=== PATIENT | female | born 1950 | race Caucasian/White ===

== ENCOUNTER 2018-07-26 10:12 | Emergency (ER) | payer MEDICAID, MEDICARE ==
[2018-07-26 11:00] VITALS: BP 117/62
--- NOTE | 2018-07-26 11:28 | UC ---
Skin Complaint HPI - HPI Summary HPI Summary: Pt presents with "rash on right forearm" that began in March 2018. Pt reports that she was bitten by a "bug" and was told she had cellulitis and to apply triple antibiotic ointment daily. Pt has been apply triple antibiotic ointment daily since March 2018. Now c/o of enlarged erythematous area that is circular and excoriated. Pt c/o itching and has concern for lyme. - History of Current Complaint Chief Complaint: UCSkin Time Seen by Provider: 07/26/18 11:16 Stated Complaint: SKIN COMPLAINT LEFT ARM Hx Obtained From: Patient Hx Last Menstrual Period: n/a ?: No Onset/Duration: Gradual Onset, Lasting Weeks, Still Present, Worse Since - onset Skin Exposure Onset/Duration: Weeks Ago Timing: Constant Onset Severity: Mild Current Severity: Mild Pain Intensity: 0 Location: Discrete, Other - left forearm posterior Character: Redness Aggravating Factor(s): Touch Alleviating Factor(s): Nothing Associated Signs & Symptoms: Positive: Rash Related History: Possible Reaction to: Insect - Allergy/Home Medications Allergies/Adverse Reactions: Allergies Allergy/AdvReac Type Severity Reaction Status Date / Time acetaminophen [From Tylenol] AdvReac Abdominal Verified 07/26/18 11:01 Pain aspirin AdvReac Vomiting Verified 07/26/18 11:02 Home Medications: Home Medications Fluticasone-Salmeterol 250-50* [Advair Diskus 250-50*] 1 puff INH BID 07/26/18 [ History Confirmed 07/26/18] Review of Systems Constitutional: Negative Skin: Rash Eyes: Negative ENT: Negative Respiratory: Negative Cardiovascular: Negative Gastrointestinal: Negative Genitourinary: Negative Motor: Negative Neurovascular: Negative Musculoskeletal: Negative Neurological: Negative Psychological: Negative Is Patient Immunocompromised?: No All Other Systems Reviewed And Are Negative: Yes PMH/Surg Hx/FS Hx/Imm Hx Previously Healthy: Yes - Surgical History Surgical History: Yes Surgery Procedure, Year, and Place: [facility]. section - Family History Known Family History: Positive: Cardiac Disease, Hypertension, Respiratory Disease - Social History Lives: With Family Alcohol Use: Weekly Substance Use Type: Marijuana Substance Use Comment - Amount & Last Used: daily use Smoking Status (MU): Heavy Every Day Tobacco Smoker Type: Cigarettes Amount Used/How Often: 11/2ppd Length of Time of Smoking/Using Tobacco: since age 14 Have You Smoked in the Last Year: Yes Physical Exam Triage Information Reviewed: Yes Appearance: Ill-Appearing Vital Signs: Initial Vital Signs Temp 98.7 F 07/26/18 10:50 Pulse 65 07/26/18 10:50 Resp 16 07/26/18 10:50 BP 117/62 07/26/18 10:50 Pulse Ox 97 07/26/18 10:50 Vital Signs Reviewed: Yes Eye Exam: Normal ENT Exam: Normal Dental Exam: Normal Neck exam: Normal Respiratory Exam: Normal Cardiovascular Exam: Normal Musculoskeletal Exam: Normal Neurological Exam: Normal Psychological Exam: Normal Skin: Positive: rashes Course/Dx - Differential Diagnoses - Skin Complaint Differential Diagnoses: Cellulitis, Contact Dermatitis, Local Allergic Reaction , Tick Born Illness, Tinea - Diagnoses Provider Diagnoses: contact dermatitis. cellullitis Discharge - Sign-Out/Discharge Documenting (check all that apply): Patient Departure All imaging exams completed and their final reports reviewed: No Studies - Discharge Plan Condition: Stable Disposition: HOME Prescriptions: DOXYcycline CAP(*) [DOXYcycline 100MG CAP(*)] 100 mg PO Q12H #14 cap Patient Education Materials: Cellulitis (ED) Referrals: Ezekiel Ribeiro MD [Primary Care Provider] - If Needed - Billing Disposition and Condition Condition: STABLE Disposition: Home
== END 2018-07-26 11:47 | disposition home or self-care (01) ==
LOC: UCCORT 10:12
DX: L25.9 Unspecified contact dermatitis, unspecified cause (principal); L03.90 Cellulitis, unspecified; Z88.6 Allergy status to analgesic agent; F17.210 Nicotine dependence, cigarettes, uncomplicated
CPT/HCPCS: 86618; 99212; G0463